=== PATIENT | male | born 1970 | race Caucasian/White ===

== ENCOUNTER 2021-01-11 08:33 | Outpatient (CLI) | payer BC, SELFPAY ==
--- NOTE | 2021-01-11 08:51 | EST_ITS ---
Patient Info Name: Cem Oliver Age: 50 years : 1970 Gender: Male Ht: 70 in Wt: 214 lbs BSA: 2.22 m2 HR: 56 bpm BP: 132 / 91 mmHg Heart Rhythm: Sinus Rhythm Exam Date: 01/11/2021 9:03 AM Exam Location: [facility] Stress Patient Status: Outpatient Admit Date: 01/11/2021 Staff Ordering Physician: Diane Brandon MD Attending Provider: Diane Brandon MD Exercise Technologist: Rebecca Dill CT Exercise Physician: Abdulkadir Mcwilliams DO Exam Type: CA stress test treadmill Study Info A treadmill exercise stress test was performed. Summary 1. 1. Negative Alfredo exercise stress test for ischemic ST changes by ECG criteria. 2. 2. Good functional capacity, achieving 12 METs of workload. 3. 3. Appropriate HR response to exercise. 4. 4. Appropriate HR recovery at 1 minute post exercise. 5. 5. No imaging with stress testing. 6. 6. Patient informed of the above results. Protocol: Alfredo Stress ECG Details Stage: REST Duration (min): 0 min : 56 sec Speed (mph): 0.0 Grade (%): 0 HR (bpm): 62 SBP (mmHg): 132 DBP (mmHg): 88 METS: --- Stage: REST Duration (min): 18 min : 2 sec Speed (mph): 0.0 Grade (%): 0 HR (bpm): --- SBP (mmHg): 132 DBP (mmHg): 91 METS: --- Stage: STAGE 1 Duration (min): 1 min : 0 sec Speed (mph): 1.7 Grade (%): 10 HR (bpm): 95 SBP (mmHg): 132 DBP (mmHg): 91 METS: --- Stage: STAGE 1 Duration (min): 2 min : 0 sec Speed (mph): 1.7 Grade (%): 10 HR (bpm): 98 SBP (mmHg): 132 DBP (mmHg): 91 METS: --- Stage: STAGE 1 Duration (min): 3 min : 0 sec Speed (mph): 1.7 Grade (%): 10 HR (bpm): 96 SBP (mmHg): 145 DBP (mmHg): 76 METS: --- Stage: STAGE 2 Duration (min): 1 min : 0 sec Speed (mph): 2.5 Grade (%): 12 HR (bpm): 103 SBP (mmHg): 145 DBP (mmHg): 76 METS: --- Stage: STAGE 2 Duration (min): 2 min : 0 sec Speed (mph): 2.5 Grade (%): 12 HR (bpm): 103 SBP (mmHg): 153 DBP (mmHg): 65 METS: --- Stage: STAGE 2 Duration (min): 3 min : 0 sec Speed (mph): 2.5 Grade (%): 12 HR (bpm): 116 SBP (mmHg): 153 DBP (mmHg): 65 METS: --- Stage: STAGE 3 Duration (min): 1 min : 0 sec Speed (mph): 3.4 Grade (%): 14 HR (bpm): 125 SBP (mmHg): 176 DBP (mmHg): 71 METS: --- Stage: STAGE 3 Duration (min): 2 min : 0 sec Speed (mph): 3.4 Grade (%): 14 HR (bpm): 128 SBP (mmHg): 176 DBP (mmHg): 71 METS: --- Stage: STAGE 3 Duration (min): 3 min : 0 sec Speed (mph): 3.4 Grade (%): 14 HR (bpm): 135 SBP (mmHg): 166 DBP (mmHg): 72 METS: --- Stage: STAGE 4 Duration (min): 1 min : 0 sec Speed (mph): 4.2 Grade (%): 16 HR (bpm): 148 SBP (mmHg): 166 DBP (mmHg): 72 METS: --- Stage: STAGE 4 Duration (min): 2
== END 2021-01-11 08:34 | disposition home or self-care (01) ==
PROVIDERS: PCP Family Medicine; Visit Provider Family Medicine
DX: E78.5 Hyperlipidemia, unspecified (principal); R07.89 Other chest pain
CPT/HCPCS: 93017

== ENCOUNTER 2021-10-24 08:06 | Outpatient (CLI) | payer BC, SELFPAY ==
--- NOTE | 2021-10-27 22:57 | WPDHOMESLEEP ---
Sleep Study - Home Unattended Date of Study: 10/24/21 Ordering Provider: Stacy Brandon MD Interpreting Provider: Parvin Champion, DO Home Sleep Study Type: Apnea Link Air Height: 1.75 m Weight: 99.79 kg Body Mass Index: 32.5 Neck Circumference (inches): 17.5 [place]: 8 Reason for Sleep Study Intermittent daytime sleepiness, snoring Sleep History The patient is a 50-year-old male with hyperlipidemia, gout, GERD and erectile dysfunction that had a sleep study ordered by his primary care physician for evaluation of sleep apnea. The patient denies awakening from sleep short of breath. He rarely awakens at night with heartburn, belching or cough. He occasionally snores loud enough that others complain. He occasionally has trouble sleeping when he has a cold. He denies waking up gasping for air throughout the night. He rarely has breathing problems at night observed by himself or others. He rarely sweats excessively at night. He denies having heart palpitations or irregular heartbeats during the night. He rarely falls asleep during the day but never while driving. He denies sleep paralysis and cataplexy. He denies having trouble at school or work due to sleepiness. He occasionally experiences vivid dream like scenes upon awakening or falling asleep. He denies feeling afraid of going to sleep. He rarely has nightmares. He occasionally remembers his dreams. He rarely has thoughts racing through his mind. He rarely feels sad or depressed. He rarely has anxiety. He occasionally has muscular tension. He rarely kicks during the night. He occasionally has crawling aching feelings in his legs and occasionally has leg pain during the night. He denies grinding his teeth throughout the night and awakening with morning jaw pain. He is rarely bothered by pain during the day and rarely awakened by pain during the night. He occasionally wakes up feeling stiff in the morning. He occasionally wakes up with sore and achy muscles. He occasionally wakes up with pain in the neck, spine and other joints. He goes to bed at 10:30 p.m. on weekdays and 11:30 p.m. on the weekends. He takes him 15-20 minutes to fall asleep. He wakes up once throughout the night to use the restroom. He can take him a few minutes to several hours to fall back asleep. He wakes up at 6:30 a.m. on the weekdays and 7:30 a.m. on the weekends. He typically gets 7-8 hours of sleep per night. He will stay in bed for 15 minutes after waking up in the morning. He currently lives with his and his 2 college-age children. The patient denies consuming any caffeinated beverages within 2 hours of bedtime. He denies engaging in physical exercise before bedtime. He does watch television before falling asleep. He doesn't take naps in the afternoon or the evening. He drinks 1 caffeinated beverage per day. He drinks 2 alcoholic beverages per day. He denies recreational drug use. [facility] Past Medical History Medical History Abdominal wall lump Dyslipidemia Elevated lipids Erectile dysfunction Folliculitis Idiopathic gout Vitamin D deficiency Surgical History Surgical History Hx of arthroscopy of right knee (~1986) Family History Family History Father Family history of coronary artery disease Mother Fuchs' corneal dystrophy Social History Social History Second hand tobacco smoke exposure: No Alcohol intake: current Drinks per week: 5 Alcohol use details: consumes 1 beer daily Substance use: never Substance use type: does not use Gender identity (if verbalized by the patient): Male Medications Home Medications Medication Instructions Recorded Confirmed Type allopurinol 100 mg tablet 100 mg PO DAILY #90 tabs 07/05
[2021-10-27 23:23] VITALS: BMI 32.5
== END 2021-10-25 14:46 | disposition home or self-care (01) ==
LOC: ANHCSM 08:06
PROVIDERS: PCP Family Medicine; Visit Provider Family Medicine
DX: R40.0 Somnolence (principal); G47.33 Obstructive sleep apnea (adult) (pediatric)
CPT/HCPCS: 95806

== ENCOUNTER 2022-06-07 10:07 | Outpatient (CLI) | payer BC, SELFPAY ==
[2022-06-07 20:09] LABS: Kit Draw Collected
== END 2022-06-07 10:08 | disposition home or self-care (01) ==
LOC: ANHGOSHLAB 10:08
PROVIDERS: PCP Family Medicine; Visit Provider Family Medicine
DX: Z51.81 Encounter for therapeutic drug level monitoring (principal); Z79.899 Other long term (current) drug therapy; E78.5 Hyperlipidemia, unspecified
CPT/HCPCS: 36415

== ENCOUNTER 2023-03-15 15:50 | Outpatient (CLI) | payer BC, SELFPAY ==
[2023-03-15 20:14] LABS: Basophils Absolute Auto 0.1 K/mm3 (0.0-0.1); Eosinophils Absolute Auto 0.1 K/mm3 (0-0.3); Eosinophils Percent Auto 2.1 % (0-4.4); Hematocrit 43.2 % (42.0-52.0); Hemoglobin 13.7 g/dL (14.0-18.0); Immature Granulocyte Absolute 0.02 K/mm3 (0.00-0.031); Immature Granulocyte Percent A 0.3 % (0-0.5); Lymphocytes Absolute Auto 1.86 K/mm3 (0.9-3.2); Lymphocytes Percent Auto 29.7 % (18.3-44.2); Mean Corpuscular HGB Conc 31.7 g/dl (32-36); Mean Corpuscular Hemoglobin 24.6 pg (26-34); Mean Corpuscular Volume 77.6 fl (80-100); Mean Platelet Volume 10.3 fl (7.4-10.4); Monocytes Absolute Auto 0.7 K/mm3 (0.1-0.6); Monocytes Percent Auto 11.2 % (2.6-8.5); Neutrophils Absolute Auto 3.5 K/mm3 (1.3-6.7); Neutrophils Percent Auto 55.7 % (45.5-73.1); Platelet Count Result 248 k/mm3 (150-375); Red Blood Count 5.57 M/mm3 (4.6-6.20); Red Cell Distribution Width 16.5 % (11.5-14.5); White Blood Count 6.3 K/mm3 (4.5-10.0)
[2023-03-15 22:38] LABS: Alanine Aminotransferase 24 U/L (6-50); Albumin Level 4.5 g/dL (3.5-5.1); Alkaline Phosphatase 54 U/L (38-126); Amylase 66 U/L (30-110); Anion Gap 6 mmol/L (8-16); Aspartate Amino Transferase 33 U/L (17-59); Bilirubin,Total 0.6 mg/dL (0.2-1.3); Blood Urea Nitrogen 23 mg/dL (9-20); Calcium 9.7 mg/dL (8.4-10.2); Carbon Dioxide 27 mmol/L (22-30); Chloride 104 mmol/L (98-107); Estimated Glomerular Filt Rate 53; Glucose 92 mg/dL (65-110); Lipase 101 U/L (23-300); Potassium 4.3 mmol/L (3.4-5.0); Sodium 137 mmol/L (137-145)
== END 2023-03-15 15:51 | disposition home or self-care (01) ==
LOC: ANHGOSHLAB 15:51
PROVIDERS: PCP Family Medicine; Visit Provider Nurse Practitioner Family
DX: K92.1 Melena (principal); R10.9 Unspecified abdominal pain
CPT/HCPCS: 36415; 80053; 82150; 83690; 85025

== ENCOUNTER 2023-03-27 00:11 | Day surgery (SDC) | payer BC, SELFPAY ==
[2023-03-22 12:44] VITALS: BMI 30.9
[2023-03-27 12:52] VITALS: BP 135/88; PULSE 60; RESP 18; TEMP 36.6; O2SAT 98
[2023-03-27] MEDS: LACTATED RINGERS 1,000 ML 150 ML IV CONT (12:58)
--- NOTE | 2023-03-27 13:05 | WPDANESEPPF ---
Anes - Initial Pre Proc Eval Procedure: Operation Date: 03/27/23 14:00 Proposed Procedures p Esophagogastroduodenoscopy - Eloy Dunn MD Date/Time: 03/27/23 13:05 Surgeon: Eloy Dunn MD Pre Op Diagnosis: GERD without esophagitis Patient Data Age: 52 Gender: M Height: 1.78 m Weight: 99.5 kg Last Vital Signs Temp 97.8 F 03/27/23 12:52 Pulse 60 03/27/23 12:52 Resp 18 03/27/23 12:52 BP 135/88 03/27/23 12:52 Pulse Ox 98 03/27/23 12:52 O2 Del Method Room Air 03/27/23 12:52 Allergies Allergy/AdvReac Type Severity Reaction Status Date / Time No Known Allergies Allergy Verified 03/27/23 12:59 Home Medications Medication Instructions Recorded Confirmed Type cholecalciferol (vitamin D3) 50 50 mcg PO DAILY 06/07/22 03/27/23 History mcg (2,000 unit) tablet allopurinol 100 mg tablet 100 mg PO DAILY #90 tabs 01/24/23 03/27/23 Rx fenofibrate 160 mg tablet 160 mg PO DAILY #90 tabs 01/24/23 03/27/23 Rx sildenafil 100 mg tablet (Viagra) 100 mg PO DAILY PRN sexual 01/24/23 03/27/23 Rx activity #30 tabs simvastatin 40 mg tablet 40 mg PO QHS #90 tabs 01/24/23 03/27/23 Rx omeprazole 20 mg capsule,delayed 20 mg PO DAILY PRN Acid Reflux 01/29/23 03/27/23 History release omeprazole 40 mg capsule,delayed 40 mg PO DAILY #30 caps 03/15/23 03/27/23 Rx release Patient hx anesthesia problems: none Family hx anesthesia problems: none Results Review: All pre-operative results and documents have been reviewed as part of the pre-operative evaluation. [facility] Past Medical History Medical History (Updated 03/15/23 @ 15:40 by Rossy Pro APRN) Abdominal wall lump Dyslipidemia Elevated lipids Erectile dysfunction Folliculitis Idiopathic gout Melena MINI (obstructive sleep apnea) Vitamin D deficiency Surgical History Surgical History Hx of arthroscopy of right knee (~1986) Family History Family History Father Family history of coronary artery disease Mother Fuchs' corneal dystrophy Social History Social History Smoking status: Never smoker Second hand tobacco smoke exposure: No Alcohol intake: current Drinks per week: 7 Alcohol use details: HARD LIQUOR AND BEER Substance use: never Substance use type: does not use Lack of Transportation: No Lack of Food: Never True Current Housing: I Have Housing Concerned About Future Housing: No Difficulty Paying Gas/Electric Bills: No Difficulty Paying for Meds: No Currently Unemployed: No Education: Bachelor's Degree Difficulty w/ Childcare or Family Care: No Living arrangements: with family Occupation/Education: occupation Gender identity (if verbalized by the patient): Male Spiritual care concerns: No Agree to blood products: Yes Anes - Eval Final PreProcedure Day of Procedure 03/27/23 13:05 Patient weight: normal Heart: regular rate and rhythm Lungs: clear to auscultation Airway: Mallampati scale class II Neurological: alert and oriented Last oral intake: >/= 8 hours ASA classification: II Emergent: no Anesthetic plan: proceed Anesthesia type and monitoring: general GIVS and standard monitoring Results Review: All pre-operative results and documents have been reviewed as part of the pre-operative evaluation. Informed Consent: The patient's anesthetic plan and its attendant risks and benefits were discussed with the patient/family/POA. Questions were solicited and answers provided to the satisfaction of the patient/family/POA.
--- NOTE | 2023-03-27 13:17 | PM.HPGS ---
History of Present Illness History of Present Illness Consent: Risks, benefits, and alternatives have been discussed and questions answered. Patient agrees to proceed with procedure. Chief complaint: GERD without esophagitis Narrative: Cem Oliver Jr. is a 52 year old male with epigastric pain about 3 weeks ago with nausea, also noted dark stool. Started using omeprazole and doing better. Had EGD but few years ago, he was told that had inflammation and took omeprazole for short time. No NSAID's. Review of Systems Constitutional: Constitutional: Denies headache(s) and Denies weakness Eyes: Eyes: Denies blurry vision ENT: Reports Normal hearing present, Denies headache(s) and Denies neck pain Cardiovascular: Cardiovascular: Denies chest pain and Denies dyspnea Respiratory: Respiratory: Denies dyspnea Gastrointestinal: Gastrointestinal: Reports no additional gastrointestinal complaints Genitourinary: Genitourinary: Denies dysuria Musculoskeletal: Musculoskeletal: Denies neck pain Integumentary/Breasts: Skin/Breast: Denies dry skin Neurologic: Reports Normal hearing present, Denies headache(s) and Denies weakness Psychiatric: Psychiatric: Denies anxiety Endocrine: Endocrine: Denies change in body appearance Hematologic/Lymphatic: Hematologic/Lymphatic: Denies easy bleeding Allergic/Immunologic: Allergic/Immunologic: Denies urticaria PMFSH Past Medical History Medical History (Updated 03/27/23 @ 13:18 by Eloy Dunn MD) Abdominal wall lump Dyslipidemia Elevated lipids Epigastric pain Erectile dysfunction Folliculitis Idiopathic gout Melena MINI (obstructive sleep apnea) Vitamin D deficiency Surgical History Surgical History Hx of arthroscopy of right knee (~1986) Family History Family History Father Family history of coronary artery disease Mother Fuchs' corneal dystrophy Social History Social History Smoking status: Never smoker Second hand tobacco smoke exposure: No Alcohol intake: current Drinks per week: 7 Alcohol use details: HARD LIQUOR AND BEER Substance use: never Substance use type: does not use Lack of Transportation: No Lack of Food: Never True Current Housing: I Have Housing Concerned About Future Housing: No Difficulty Paying Gas/Electric Bills: No Difficulty Paying for Meds: No Currently Unemployed: No Education: Bachelor's Degree Difficulty w/ Childcare or Family Care: No Living arrangements: with family Occupation/Education: occupation Gender identity (if verbalized by the patient): Male Spiritual care concerns: No Agree to blood products: Yes Meds Home Medications and Allergies Home Medications Medication Instructions Recorded Confirmed Type cholecalciferol (vitamin D3) 50 50 mcg PO DAILY 06/07/22 03/27/23 History mcg (2,000 unit) tablet allopurinol 100 mg tablet 100 mg PO DAILY #90 tabs 01/24/23 03/27/23 Rx fenofibrate 160 mg tablet 160 mg PO DAILY #90 tabs 01/24/23 03/27/23 Rx sildenafil 100 mg tablet (Viagra) 100 mg PO DAILY PRN sexual 01/24/23 03/27/23 Rx activity #30 tabs simvastatin 40 mg tablet 40 mg PO QHS #90 tabs 01/24/23 03/27/23 Rx omeprazole 20 mg capsule,delayed 20 mg PO DAILY PRN Acid Reflux 01/29/23 03/27/23 History release omeprazole 40 mg capsule,delayed 40 mg PO DAILY #30 caps 03/15/23 03/27/23 Rx release Allergies Allergy/AdvReac Type Severity Reaction Status Date / Time No Known Allergies Allergy Verified 03/27/23 12:59 Vital Signs Vital Signs - 24 hr 03/27/23 12:52 Temperature 97.8 F Pulse Rate 60 Respiratory Rate 18 Blood Pressure 135/88 Pulse Oximetry 98 Oxygen Delivery Room Air Exam Const: General: comfortable and no acute distress HENMT: Face/Nose/Sinus: Nor
[2023-03-27 13:38] VITALS: BP 118/79; PULSE 68; RESP 22; O2SAT 94
[2023-03-27 13:48] VITALS: BP 128/90; PULSE 77; RESP 25; O2SAT 98
[2023-03-27 13:58] VITALS: BP 127/87; PULSE 65; RESP 21; O2SAT 100
== END 2023-03-27 14:05 | disposition home or self-care (01) ==
PROVIDERS: PCP Family Medicine; Visit Provider Internal Medicine Gastroenterology
PROC: 0DJ08ZZ Inspection of Upper Intestinal Tract, Via Natural or Artificial Opening Endoscopic (ICD-10-PCS; CPT 43235; principal; 2023-03-27 14:00)
DX: K21.9 Gastro-esophageal reflux disease without esophagitis (principal); E78.5 Hyperlipidemia, unspecified; M10.9 Gout, unspecified; G47.33 Obstructive sleep apnea (adult) (pediatric); E55.9 Vitamin D deficiency, unspecified
CPT/HCPCS: 43239; 88305; J2704; J7120